=== PATIENT | male | born 1970 | race Caucasian/White ===

== ENCOUNTER 2022-06-04 20:00 | Outpatient (CLI) | payer MEDICAID, SELFPAY | END 2022-06-04 20:01 | disposition home or self-care (01) | LOC: SLEEP 06-05 06:33 | PROVIDERS: Visit Provider Nurse Practitioner Family | DX: G47.33 Obstructive sleep apnea (adult) (pediatric) (principal) | CPT/HCPCS: 95810 ==

== ENCOUNTER 2022-07-10 20:00 | Outpatient (CLI) | payer MEDICAID, SELFPAY | END 2022-07-10 20:01 | disposition home or self-care (01) | LOC: SLEEP 07-11 08:23 | PROVIDERS: Visit Provider Nurse Practitioner Family | DX: G47.33 Obstructive sleep apnea (adult) (pediatric) (principal) | CPT/HCPCS: 95811 ==